=== PATIENT | female | born 2000 | race Caucasian/White ===

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

== ENCOUNTER 2023-04-06 15:06 | Emergency (ER) | payer OTHER ==
[2023-04-06 15:13] VITALS: RESP 18
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
[2023-04-06 20:40] VITALS: BP 116/74; PULSE 58; TEMP 97.7
== END 2023-04-06 20:17 | disposition home or self-care (01) ==
LOC: EC 15:06
DX: F41.8 Other specified anxiety disorders (principal); F17.290 Nicotine dependence, other tobacco product, uncomplicated; F12.90 Cannabis use, unspecified, uncomplicated
CPT/HCPCS: 82075; 99285

== ENCOUNTER 2023-05-26 00:35 | Emergency (ER) | payer OTHER ==
[2023-05-26 00:41] VITALS: TEMP 98.2
[2023-05-26] MEDS ORDERED: SODIUM CHLORIDE 0.9% 1,000 ML IV STA (00:52)
[2023-05-26 02:01] LABS: Basophils % (A) 0 %; Eosinophils # (A) 0.2 k/uL (0-0.7); Eosinophils % (A) 3 %; HCT 38.8 % (34.0-46.0); HGB 13.5 gm/dL (11.4-16.0); Lymphocytes # (A) 2.1 k/uL (1.0-4.8); Lymphocytes % (A) 37 %; MCH 32.7 pg (25.0-35.0); MCHC 34.7 g/dL (31.0-37.0); MCV 94.2 fL (80.0-100.0); Mean Platelet Volume 8.5; Monocytes # (A) 0.4 k/uL (0-1.0); Monocytes % (A) 7 %; Neutrophils # (A) 2.7 k/uL (1.3-7.7); Neutrophils % (A) 49 %; Platelet Count 199 k/uL (150-450); RBC 4.12 m/uL (3.80-5.40); WBC 5.6 k/uL (4.0-11.0)
[2023-05-26 02:11] LABS: ALT 40 U/L (4-34); AST 92 U/L (14-36); African American GFR (CKD) >90 (>60 ml/min/1.73 sqM); Alkaline Phosphatase 49 U/L (38-126); Anion Gap 10 mmol/L; Blood Urea Nitrogen 18 mg/dL (7-17); Carbon Dioxide 20 mmol/L (22-30); Chloride 108 mmol/L (98-107); Glucose 98 mg/dL (74-99); Non-African American GFR(CKD) >90 (>60 ml/min/1.73 sqM); Potassium 3.7 mmol/L (3.5-5.1); Sodium 138 mmol/L (137-145); Total Bilirubin 0.4 mg/dL (0.2-1.3); Total Protein 7.4 g/dL (6.3-8.2)
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
[2023-05-26 02:52] VITALS: BP 138/80; PULSE 95; RESP 16
== END 2023-05-26 02:53 | disposition home or self-care (01) ==
LOC: EC 00:35
DX: R74.01 Elevation of levels of liver transaminase levels (principal); R20.2 Paresthesia of skin; F17.290 Nicotine dependence, other tobacco product, uncomplicated; F12.90 Cannabis use, unspecified, uncomplicated
CPT/HCPCS: 36415; 80053; 85025; 96360; 99283

== ENCOUNTER 2023-05-27 19:40 | Emergency (ER) | payer OTHER ==
[2023-05-27 19:55] VITALS: RESP 18
[2023-05-27 19:59] VITALS: TEMP 98.7
--- NOTE | 2023-05-27 22:04 | XR ---
EXAMINATION TYPE: XR cervical spine comp DATE OF EXAM: 05/27/2023 9:52 PM INDICATION: Patient age:Female; 22 years old; Reason for study: pain; COMPARISON: None TECHNIQUE: The cervical spine was imaged in frontal, lateral, odontoid and bilateral oblique. FINDINGS: Postsurgical changes at C4-C5 and C6. Hardware appears intact. Mild osteophyte formation of the anterior vertebral bodies. The osseous structures show normal alignment without evidence of an a cute fracture. No significant vertebral body osteophytes or facet joint arthropathy. The intervertebr al disk spaces are preserved. Pedicles are intact. Soft tissues are within normal limits. The odonto id appears intact. IMPRESSION: 1. No fracture or dislocation. 2. Postsurgical changes with mild degenerative disc disease changes of the cervical spine.
[2023-05-27] MEDS ORDERED: LIDOCAINE 5% PATCH TOPICAL STA (22:30)
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
[2023-05-27 22:40] VITALS: BP 131/82; PULSE 77
== END 2023-05-27 22:40 | disposition home or self-care (01) ==
LOC: EC 19:40
DX: S16.1XXA Strain of muscle, fascia and tendon at neck level, initial encounter (principal); F17.290 Nicotine dependence, other tobacco product, uncomplicated; F12.90 Cannabis use, unspecified, uncomplicated; X58.XXXA Exposure to other specified factors, initial encounter
CPT/HCPCS: 72050; 99283

== ENCOUNTER 2023-05-30 23:40 | Emergency (ER) | payer OTHER ==
[2023-05-30 23:46] VITALS: RESP 18
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
[2023-05-31 02:20] LABS: Appearance,Urine Clear (Clear); Bilirubin,Urine Negative (Negative); Blood,Urine Negative (Negative); Glucose,Urine (UA) Negative (Negative); Ketones,Urine Trace (Negative); Leukocyte Esterase,Urine Negative (Negative); Nitrite,Urine Negative (Negative); Protein,Urine Negative (Negative); Specific Gravity,Urine 1.015 (1.001-1.035); Urobilinogen,Urine <2.0 mg/dL (<2.0)
[2023-05-31 03:03] LABS: Color,Urine Yellow
[2023-05-31] MEDS ORDERED: DOXYCYCLINE 100 MG CAP PO STA (03:07)
[2023-05-31] MEDS ORDERED: cefTRIAXone 250 MG VIAL IM STA (03:07)
[2023-05-31 03:21] VITALS: BP 142/88; PULSE 85; TEMP 98.6
[2023-06-04 14:32] LABS: C. trachomatis,PCR Negative (Negative); N. gonorrhoeae,PCR Negative (Negative)
== END 2023-05-31 03:39 | disposition home or self-care (01) ==
LOC: EC 23:40
DX: Z20.2 Contact with and (suspected) exposure to infections with a predominantly sexual mode of transmission (principal); Z20.822 Contact with and (suspected) exposure to COVID-19; F17.290 Nicotine dependence, other tobacco product, uncomplicated; F12.90 Cannabis use, unspecified, uncomplicated
CPT/HCPCS: 87651; 81003; 81025; 87491; 87591; 87636; 99283; 96372; J0696

== ENCOUNTER 2023-06-06 22:28 | Emergency (ER) | payer OTHER ==
[2023-06-06 22:35] VITALS: BP 123/83; PULSE 117; RESP 18; TEMP 98
[2023-06-07 01:29] LABS: Amorphous Sediment,Urine Moderate /hpf; Appearance,Urine Turbid (Clear); Bilirubin,Urine Negative (Negative); Blood,Urine Negative (Negative); Color,Urine Yellow; Glucose,Urine (UA) Negative (Negative); Ketones,Urine Negative (Negative); Leukocyte Esterase,Urine Negative (Negative); Mucus,Urine Occasional /hpf; Nitrite,Urine Negative (Negative); PH, Urine 7.5 (5.0-8.0); Protein,Urine Negative (Negative); Squamous Epithelial Cell,Urine 1 /hpf (0-4); Urobilinogen,Urine <2.0 mg/dL (<2.0); WBC,Urine 1 /hpf (0-5)
[2023-06-07 01:34] LABS: Amphetamine Screen,Urine Not Detected (NotDetected); Cocaine Screen,Urine Not Detected (NotDetected); Opiate Screen,Urine Not Detected (NotDetected); Phencyclidine Screen,Urine Not Detected (NotDetected); Urn Cannabinoid Scrn Detected (NotDetected)
[2023-06-07 01:35] LABS: Barbiturate Screen,Urine Not Detected (NotDetected); Benzodiazepines Screen,Urine Not Detected (NotDetected); Methadone Screen, Urine Not Detected (NotDetected); Oxycodone Screen, Urine Not Detected (NotDetected); Tricyclic Antidepressant,Urine Not Detected (NotDetected)
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
== END 2023-06-07 02:59 | disposition home or self-care (01) ==
LOC: EC 22:28
DX: F32.A Depression, unspecified (principal); F17.290 Nicotine dependence, other tobacco product, uncomplicated; F12.90 Cannabis use, unspecified, uncomplicated; Z86.59 Personal history of other mental and behavioral disorders
CPT/HCPCS: 80306; 81001; 81025; 82075; 99284